=== PATIENT | male | born 1990 | race Caucasian/White ===

== ENCOUNTER 2022-07-30 07:45 | Day surgery (SDC) | payer OTHER ==
[~2022-07-30] VITALS: Ht 175.3 cm; Wt 81.0 kg
--- NOTE | 2022-07-30 07:02 | NUR ---
PT AMBULATED TO ROOM WITH CARE PERSON, POC HAS BEEN DISCUSSED WITH BOTH PARTIES. ALL QUESTIONS HAVE BEEN ADDRESSED AT THIS TIME. PT IS A&OX4. PT HAS NO C/O NAD. PT HAS CALL LIGHT AND IS ABLE TO MAKE NEEDS KNOWN. PT HAS BEEN PLACED ON FALL PRECAUTIONS AND WILL CONTINUE TO MONITOR.
[2022-07-30 07:30] VITALS: BP 106/68
[2022-07-30 07:36] LABS: HEMATOCRIT 44.3 % (39.0-50.0); HEMOGLOBIN 14.7 g/dl (14.0-18.0); MEAN CELL VOLUME 92.3 fL CALC (80.0-100.0); MEAN CORPUSCULAR HGB 30.6 pG CALC (26.0-32.0); MEAN CORPUSCULAR HGB CONC 33.2 g/dL CAL (32.0-36.0); NEUT# 6.04 thou/uL (1.82-7.42); RED BLOOD COUNT 4.8 mill/uL (4.70-6.10); RED CELL DISTRI WIDTH 11.8 % (11.5-15.5)
[2022-07-30 08:03] LABS: ALKALINE PHOSPHATASE 88 u/l (38-126); ANION GAP 13 (6-22 (CALC)); BILIRUBIN, TOTAL 0.6 mg/dL (0.0-1.4); BUN 21 mg/dL (9-20); BUN/CREATININE RATIO 23 (12-20 (CALC)); CARBON DIOXIDE 25 mmol/l (22-30); CHLORIDE 106 mmol/l (95-108); CREATININE 0.9 mg/dL (0.7-1.3); GFR FOR AFR.AMER. > 60 ML/MIN (>=60 (CALC)); GFR OTHER RACES > 60 ML/MIN (>=60 (CALC)); POTASSIUM 4.2 mmol/l (3.5-5.1); SGOT/AST 37 u/l (17-59); SODIUM 139 mmol/l (137-146); TOTAL PROTEIN 7.5 g/dL (6.3-8.2)
--- NOTE | 2022-07-30 09:40 | NUR ---
Dr. Groves telephoned with reassessment and new vital signs. Reviewed initial Valium and Clonidine dose with MD. Orders received for 1 mg PO Clonidine and Orders for bolus. Will reassess per protocol and update MD with assessment and vitals.
--- NOTE | 2022-07-30 13:24 | NUR ---
Induction Note Patient to [facility] procedure room. Time out performed at 1344. Patient placed on monitors, Norma hugger, bilateral wrist restraints applied for ET tube protection. Versed 5mg given IV push at 1338 Tourniquet applied to right arm Lidocaine 100mg given at 1339 IV push followed by Rocoronium 10mg at 1340 IV push and held for 90 seconds. Propofol bolus of 100mg given at 1341 IV push. Succinylcholine 80mg given IV push at 1342. Smooth intubation with 7.5 ETT. Positive CO2. Positive Auscultation for air exchange. Patient placed on ventilator for spontaneous ventilation. Placed on Propofol IV drip at 1343. OG inserted. Positive air on auscultation. Positive gastric content. Stomach washed at this time. Naltrexone 50mg given via OG tube with Clonidine 0.1 mg given via OG Tube. OG clamped for 45 minutes. Will monitor patient for symptoms of withdrawal and adjust propfol accordingly.
--- NOTE | 2022-07-30 14:35 | NUR ---
OG open note OG open at this time. Gastric content draining into drainage bag. OG to drain for 45 minutes. Propofol will be titrated down based on patient.
--- NOTE | 2022-07-30 15:23 | NUR ---
OG close note Stomach washed at this time. Naltrexone 50 mg with Clonidine 0.1 mg via OG tube. OG will be clamped for 45 minutes.
--- NOTE | 2022-07-30 16:55 | NUR ---
OG close note Stomach washed at this time. Naltrexone 25 mg with Clonidine 0.1 mg via OG tube. OG will be clamped for 45 minutes.
[2022-07-30] MEDS ORDERED: CLONIDINE0.1 MG PO (17:43)
[2022-07-30] MEDS ORDERED: NALTREXONE50 MG PO (17:43)
[2022-07-30] MEDS ORDERED: KLONOPIN2 MG PO (17:44)
--- NOTE | 2022-07-30 18:50 | NUR ---
OG close note Stomach washed at this time. Naltrexone 25 mg with Clonidine 0.1 mg via OG tube. OG will be clamped for 25 minutes.
--- NOTE | 2022-07-30 19:25 | NUR ---
Extubation note Closing medications given Benadryl 50mg IV push, Decadron 10mg IV push,Magnesium 4 grams IV, Zofran 8mg IV push, Octreotide 100mcg SC. Stomach washed out prior to extubation. Suctioned gastric content. OG removed. Patient extubated. Propofol Discontinued. Wrist restraints removed. Norma hugger Removed. See ANR Moderate sedate recovery record for further notes and assessment.
--- NOTE | 2022-07-30 19:55 | NUR ---
Patient to room 290 in no acute distress. Transfer of care to Med-lead sales consultantHIRA Plata at bedside. 2L NC in place per orders, IVF to continue at 100ml/hr. Lungs auscultated and clear bilaterally, Patient resting comfortably, no adventitious breath sounds appreciated. Bed alarm set. See chart/EMAR for procedural details and assessments. Handoff of care at the time of this note.
[2022-07-30 20:00] VITALS: BP 103/49
--- NOTE | 2022-07-30 20:35 | NUR ---
PATIENT RESTING IN BED, TURNING SELF ON LEFT SIDE. MAKES GRUNTING NOISES. REDIRECTED A FEW TIMES WITH NO RESPONSE. NO SIGNS OF DISTRESS NOTED. BED IN LOW POSITION. BED ALARM ACTIVE.
[2022-07-30 22:53] VITALS: BP 127/88
--- NOTE | 2022-07-30 23:25 | NUR ---
PATIENT RESTING IN BED ON HIS RIGHT SIDE. PATIENT NEEDS FREQUENT REASSURANCE AND THEN CALMS DOWN. PATIENT POLITE. ANSWERS APPROPRIATELY. DRINKING WATER WITHOUT DIFFICULTY. RECEIVED ALL 2300 MEDS WITHOUT DIFFICULTY. VOIDED IN URINAL ALREADY THIS SHIFT. CALL LIGHT IN REACH. BED IN LOW POSITION. BED ALRM ACTIVE FOR SAFETY.
[2022-07-31 03:42] VITALS: BP 136/78
--- NOTE | 2022-07-31 04:12 | NUR ---
PATIENT RESTING IN BED WITH HOB SLIGHTLY ELEVATED. NO SIGNS OF DISTRESS. NO COMPLAINTS OF PAIN. BED REMAINS IN LOW POSITION. BED ALARM ACTIVE FOR SAFETY.
--- NOTE | 2022-07-31 07:09 | NUR ---
PT RESTING IN LOW FOWLERS POSITION. ASSESSMENT COMPLETED. HEART RHYTHM NORMAL RESPIRATIONS UNLABORED BOWEL SOUNDS ACTIVE. PT IV SITE NOTED. VS TO BE COLLECTED. PT BA ACTIVE. ALL SAFETY PRECAUTIONS IN PLACE.
--- NOTE | 2022-07-31 07:30 | NUR ---
RECEIVE REPORT FROM KRYSTIAN HAMPTON.
--- NOTE | 2022-07-31 08:00 | NUR ---
Patient to alert and oriented x3. No acute distress. 2L NC in place. Lungs clear bilaterally. Patient resting in bed pleasant at this time. Bed alarm on. Assessmente head-to toe is done. Safety and fall precautions in place. Sitter at bed side.
[2022-07-31 08:13] VITALS: BP 136/78
[2022-07-31 11:00] LABS: HEMATOCRIT 44.1 % (39.0-50.0); HEMOGLOBIN 15.4 g/dl (14.0-18.0); IMMATURE GRANULOCYTES 0.9 % (0.0-5.0); MEAN CELL VOLUME 88.2 fL CALC (80.0-100.0); MEAN CORPUSCULAR HGB 30.8 pG CALC (26.0-32.0); MEAN CORPUSCULAR HGB CONC 34.9 g/dL CAL (32.0-36.0); NEUT# 13.06 thou/uL (1.82-7.42); RED CELL DISTRI WIDTH 11.8 % (11.5-15.5)
[2022-07-31 11:02] LABS: ALBUMIN 4.2 g/dL (3.2-5.0); ALKALINE PHOSPHATASE 93 u/l (38-126); ANION GAP 16 (6-22 (CALC)); BILIRUBIN, TOTAL 0.5 mg/dL (0.0-1.4); BUN 26 mg/dL (9-20); BUN/CREATININE RATIO 28 (12-20 (CALC)); CARBON DIOXIDE 21 mmol/l (22-30); CHLORIDE 109 mmol/l (95-108); CREATININE 0.9 mg/dL (0.7-1.3); GFR FOR AFR.AMER. > 60 ML/MIN (>=60 (CALC)); GFR OTHER RACES > 60 ML/MIN (>=60 (CALC)); MAGNESIUM 2.1 mg/dL (1.6-2.3); POTASSIUM 4.7 mmol/l (3.5-5.1); SGOT/AST 35 u/l (17-59); SODIUM 140 mmol/l (137-146); TOTAL PROTEIN 7.6 g/dL (6.3-8.2)
--- NOTE | 2022-07-31 12:54 | NUR ---
PATIENT RESTING IN BED. NO SIGNS OF DISTRESS NOTED. NO SIGNS OF PAIN. BED IN LOW POSITION. BED ALARM ACTIVE. SAFETY AND FALL PRECAUTION IN PLACE. SAFETY AND FALL PRECAUTIONS IN PLACE.
--- NOTE | 2022-07-31 16:30 | NUR ---
Discharge instructions given. Patient verbalizes understanding of same. Discharged in stable condition via Wheelchair to Home with staff. All belongings sent with pt.
== END 2022-07-31 15:27 | disposition home or self-care (01) | DRG 897 ==
LOC: ANR-I 07:45 → ANR 07:45 → MS2 18:30 → ANR 07-31 15:27
PROVIDERS: ATTEND Anesthesiology
DX: F11.20 Opioid dependence, uncomplicated (principal)
CPT/HCPCS: J2354